=== PATIENT | male | born 1960 | race Caucasian/White ===

== ENCOUNTER 2016-09-25 07:07 | Emergency (ER) | payer OTHER ==
[~2016-09-25] VITALS: Ht 182.9 cm; Wt 127.0 kg
[2016-09-25 08:35] LABS: ABSOLUTE BASOPHIL COUNT 0.1 /CUMM (0.0-0.2); ABSOLUTE EOSINOPHIL COUNT 0.2 /CUMM (0.0-0.7); ABSOLUTE GRANULOCYTE CT 5.3 /CUMM (1.4-6.5); ABSOLUTE LYMPH COUNT 1.4 /CUMM (1.2-3.4); ABSOLUTE MONOCYTE COUNT 0.6 /CUMM (0.10-0.60); BASOPHIL % 0.8 % (0.0-2.0); EOSINOPHIL % 3.1 % (0-5); GRANULOCYTE % 69.5 % (42.2-75.2); HEMATOCRIT 42.4 % (42-52); MEAN CORPUSCULAR HGB 31.7 PG (27.0-31.0); MEAN CORPUSCULAR HGB CONC 34.7 G/DL (33.0-37.0); MEAN CORPUSCULAR VOLUME 91.3 FL (80.0-94.0); MEAN PLATELET VOLUME 6.7 FL (7.4-10.4); PLATELET COUNT 212 /CUMM (130-400); RBC DISTRIBUTION WIDTH 13.4 % (11.5-14.5); RED BLOOD CELL CT 4.65 /CUMM (4.70-6.10); WHITE BLOOD CELL COUNT 7.6 /CUMM (4.8-10.8)
--- NOTE | 2016-09-25 09:13 | ED GENERAL ADULT ---
History of Present Illness General Chief Complaint: Animal/Insect Bite Stated Complaint: ?SPIDER BITE TO CHIN PER PT Source: patient Exam Limitations: no limitations Vital Signs & Intake/Output Vital Signs & Intake/Output Vital Signs Date Time Temp Pulse Resp B/P B/P Pulse O2 O2 Flow FiO2 Mean Ox Delivery Rate 09/25 1148 85 18 140/85 98 Room Air 09/25 0734 98.4 76 20 150/90 98 Room Air Allergies Coded Allergies: No Known Allergies (09/25/16) Triage Note: PT STATES WHEN HE WOKE UP THIS MORNING HE HAD A BITE TO HIS NECK WITH SWELLING. PT HAS 2 ADDITIONAL BITES. ONE TO CHEEK AND ONE OTHER TO NECK. UNSURE IF IT'S A SPIDER OR NOT. STATES ALL BITES ARE ITCHY. NO AIRWAY INVOLVEMENT WITH SWELLING Triage Nurses Notes Reviewed? yes HPI: Mr. Sanches is 56 year old male with PMH of HTN, HLP and GERD who presented to ED with CC of skin rash with concern of insect bite. Patient reported skin pimple on the left cheek 1 week ago, started small and was getting bigger, was very itchy and started to drain clear fluid upon manipulating it, patient applied some bacitracin and Band-Aid, healed up with thin yellow crust on top. A few days later patient noticed skin pimple in the neck, didn't change in size and healed up. 2 days ago patient noticed another pimple in the neck, reported using hair plucker to drain it out. Patient denied any drainage and noticed localized swelling of the neck, tenderness afterwards. Patient denied any pain however he reported discomfarte sensation and itchiness. Patient denied any shortness of breath, dysphagia, throat pain, ear pain, fever, chills, muscle or joint pain. Denied any other skin rashes. Denied similar skin rash in the past. Denied any sick contact with similar rash. Based on patient history, onset of the skin pimples do not relate to specific sleeping location. No history of insect bite or bed bite. (DOMINIK MURPHY,[facility]) Reconcile Medications Diphenhydramine HCl (Benadryl) 25 MG CAPSULE 1 CAP PO QPM ALLERGIES avoid while driving or working with heavy machines or construction work. Doxycycline Hyclate 100 MG CAPSULE 1 CAP PO BID cellulitis . (JAVID MURPHY,KRISTINA) Past History Travel History Traveled to [place] past 21 day No Medical History Any Pertinent Medical History? see below for history Cardiovascular: hypertension, hyperlipidemia Gastrointestinal: GERD, DIVERTICULITIS Surgical History Surgical History: non-contributory Psychosocial History What is your primary language Ivorian Tobacco Use: Current Not Daily Daily Tobacco Use Amount/Type: =< 4 Cigarettes daily ETOH Use: occasional use Illicit Drug Use: denies illicit drug use Family History Hx Contributory? No (DOMINIK MURPHY,ESA) Review of Systems Review of Systems Constitutional: Denies: chills, fever, malaise, weakness. EENTM: Denies: blurred vision, nasal congestion, throat pain, throat swelling, mouth pain, tooth pain. Respiratory: Denies: cough, orthopnea, short of breath, sputum production, wheezing. Cardiovascular: Denies: chest pain, edema, palpitations. GI: Denies: abdominal pain, nausea, vomiting. Musculoskeletal: Denies: joint pain, joint swelling, muscle pain, neck pain. (ESA LEHMAN MD) Review of Systems Genitourinary: Reports: no symptoms. Skin: Reports: see HPI, rash. Neurological/Psychological: Reports: no symptoms. Hematologic/Endocrine: Reports: no symptoms. Immunologic/Allergic: Reports: no symptoms. All Other Systems: Reviewed and Negative (KRISTINA HUA MD) Physical Exam Physical Exam General Appearance: well developed/nourished, no apparent distress, alert, awake , obese Head: atraumatic, normal appearance Eyes: Bilateral: normal appearance, PERRL, EOMI. Ears, Nose, Throat: normal pharynx, normal ENT inspection Neck: normal inspection, supple, full range of motion, midline localized swelling with erythema and tenderness, no warmness. no flactuation or crepitation. at the preiphry there are 2 small wounds covered with thin yellow crust, no discharge or bleeding Respiratory: normal breath sounds, chest non-tender, no respiratory distress Cardiovascular: regular rate/rhythm Gastrointestinal: normal bowel sounds, soft, non-tender Extremities: normal inspection, normal range of motion Neurologic/Psych: no motor/sensory deficits, awake, alert, oriented x 3, normal gait Skin: left check erythrmatous wound covered with thin yellow crust, not tender, no discharge or bleeding Lymphatic: no anterior cervical og Core Measures ACS in differential dx? No CVA/TIA Diagnosis: No Severe Sepsis Present: No Septic Shock Present: No (DOMINIK MURPHY,[facility]) Physical Exam Peripheral Pulses: 4+ carotid (R), 4+ carotid (L) Back: normal inspection, normal range of motion, no vertebral tenderness Reflexes: 2+: bicep (R), bicep (L). (KRISTINA HUA MD) Progress Differential Diagnoses I considered the following diagnoses in my evaluation of the patient: [ Cellulitis, abcess, folliciolitis, furuncle, impetigo, necrotizing fasciitis] Plan of Care: Orders Procedure Date/time Status Lab Add-on Test 09/26 1111 Active PROSTATIC SPECIFIC ANTIGEN 09/25 824 Complete LIPID PANEL 09/25 824 Complete HIGH SENSITIVITY CRP 09/25 824 Complete HEPATIC FUNCTION PANEL 09/25 824 Complete HEPT C ANTIBODY 09/25 824 Complete GLYCOSYLATED HGB 09/25 824 Complete BASIC METABOLIC PANEL 09/25 824 Complete CBC WITHOUT DIFFERENTIAL 09/25 812 Complete Laboratory Tests 09/25/16 0825: Anion Gap 13, Estimated GFR > 60, BUN/Creatinine Ratio 20.0, Glucose 106 H, Hemoglobin A1c 5.4, Calcium 9.7, Total Bilirubin 0.9, Direct Bilirubin 0.3, AST 29, ALT 43, Alkaline Phosphatase 55, C-React Prot High Sens 5.6 H, Total Protein 7.3, Albumin 4.7, Triglycerides 84, Cholesterol 192, LDL Cholesterol, Calc 128, HDL Cholesterol 48, Cholesterol/HDL Ratio 4, Total PSA 0.27, CBC w Diff NO MAN DIFF REQ, RBC 4.65 L, MCV 91.3, MCH 31.7 H, RDW 13.4, MPV 6.7 L, Gran % 69.5, Lymphocytes % 19.1 L, Monocytes % 7.5, Eosinophils % 3.1, Basophils % 0.8, Absolute Granulocytes 5.3, Absolute Lymphocytes 1.4, Absolute Monocytes 0.6, Absolute Eosinophils 0.2, Absolute Basophils 0.1, PUBS MCHC 34.7, Hepatitis C Antibody NONREACTIVE Initial ED EKG: none (SAAD LEHMAN MD) Differential Diagnoses I considered the following diagnoses in my evaluation of the patient: (KRISTINA HUA MD) Departure Departure Disposition: HOME OR SELF CARE Condition: Stable Clinical Impression Primary Impression: Cellulitis Qualifiers: Site of cellulitis: neck Qualified Code: L03.221 - Cellulitis of neck Referrals: ALIS NAVARRETE MD (PCP/Family) Departure Forms: Customer Survey General Discharge Information Prescriptions: Current Visit Scripts Diphenhydramine HCl (Benadryl) 1 CAP PO QPM #10 CAP avoid while driving or working with heavy machines or construction work. Doxycycline Hyclate 1 CAP PO BID #13 CAP . Comments -CBC, BMP and neck CT scan with IV contrast were ordered. -CT scan neck with IV contrast revealed findings suggestive of neck cellulitis without abscess or lymphadenopathy. Incidental findings are Paranasal sinus disease without air-fluid levels, tonsilliths and a hypodense, 0.7 x 1 cm cystic focus of the right palatine tonsil. -Antibiotic coverage should cover for MSSA and MRSA given multiple skin lesions. Doxycycline 100 mg IV will be given in ED, prescription of doxycycline 100 mg twice a day for 14 days will be given. -Patient reported severe itchiness, will get 1 dose of IV Benadryl 25 mg, patient was educated not to drive, avoid heavy machine or construction work while under the effect of Benadryl. -Patient is stable to be discharged home. (ESA LEHMAN MD) Resident Co-Sign Statement Statement: ED Attending supervision documentation- x I saw and evaluated the patient. I have also reviewed all the pertinent lab results and diagnostic results. I agree with the findings and the plan of care as documented in the Resident's documentation. [] I have reviewed the ED Record and agree with the Resident's documentation. [] Additions or exceptions (if any) to the Resident's note and plan are summarized below: [] (KRISTINA HUA MD) Critical Care Note Critical Care Note Critical Care Time: non-applicable (ESA LEHMAN MD) ED Attending Observation Initial Observation Note: I have seen and personally examined JEB SANCHES on 09/25/16 at 0909. I agree with the current emergency department documentation. The disposition (admission or discharge) is uncertain at this time, he needs a period of observation for the following reason(s): The ED Nurse caring for this patient has been personally informed as to what the patient is being observed for. (ESA LEHMAN MD)
--- NOTE | 2016-09-25 10:28 | CT SCAN REPORT ---
EXAMINATION: CT NECK WITH CONTRAST CLINICAL INFORMATION: Evaluate abscess and soft tissue infection. Tender swelling of neck. COMPARISON: None TECHNIQUE: Multidetector CT imaging examination of the neck was performed using 0.625 mm collimation with intravenous administration of 95 mL of Optiray 320 nonionic contrast material. DLP: 662 mGy-cm FINDINGS: Parotid glands, submandibular glands, and thyroid gland are normal. The nasopharynx, oral cavity and tongue base are unremarkable. Incidentally noted are tonsilliths, and there is a 0.7 x 1 cm cystic focus within the right palatine tonsil, likely unrelated to patient's presentation. No pathologic enhancement within the oral cavity or pharyngeal mucosal space. The parapharyngeal fat planes are preserved. There are no fluid collections in the deep soft tissues. There is no prevertebral soft tissue swelling. The hypopharynx, epiglottis, and preepiglottic space are normal. Laryngeal structures normal. There is subcutaneous tissue edema of the neck with skin thickening, more pronounced on the left than right, with edema surrounding the platysma muscles. No rim-enhancing fluid collection or soft tissue emphysema. There are normal sized lymph nodes of the suprahyoid and infrahyoid neck without evidence of lymphadenopathy by size criteria. The visualized carotid and vertebral arteries opacify normally. Skull base is intact and the mastoid air cells and middle ear cavities are clear. There are some secretions within the right inferior frontal sinus and bilateral ethmoid air cells. Also, there is mucosal thickening of sphenoid sinuses without air-fluid levels. Mucous retention cysts are present within the maxillary sinuses. The orbits and globes are unremarkable. The temporomandibular joints articulate normally. No evidence of active periodontal disease. Cervical vertebra have normal height and alignment. At C5-C6, there is moderate degenerative disc space narrowing, endplate irregularity, traction osteophyte formation and posterior disc-osteophyte complex formation. Lung apices are clear. IMPRESSION: 1. Findings suggestive of neck cellulitis without abscess or lymphadenopathy. 2. Paranasal sinus disease without air-fluid levels. 3. Incidentally noted are tonsilliths and a hypodense, 0.7 x 1 cm cystic focus of the right palatine tonsil. Recommend direct visualization of the tonsil and clinical follow-up to determine whether patient has any symptoms related to this tonsillar enlargement.
[2016-09-25] MEDS ORDERED: DOXYCYCLINE HY100 M2 PO ×2 (10:46→10:50)
[2016-09-25] MEDS ORDERED: BENADRYL25 MG PO ×2 (10:46→10:50)
[2016-09-25 11:48] VITALS: BP 140/85
== END 2016-09-25 12:21 ==
LOC: ERH 07:07
PROVIDERS: Student in an Organized Health Care Education/Training Program
DX: L03.211 Cellulitis of face (principal)
CPT/HCPCS: 82436; 86803; 96374; 96375; J1200